=== PATIENT | female | born 1955 | race Caucasian/White ===

== ENCOUNTER 2018-03-06 06:04 | Inpatient (IN) | payer MEDICAID, OTHER ==
[~2018-03-06] VITALS: Ht 162.6 cm; Wt 67.1 kg
[2018-03-06 07:04] LABS: CLARITY URINE CLEAR (CLEAR); COLOR URINE YELLOW (YELLOW); KETONES URINE TRACE (NEGATIVE); LEUKOCYTE ESTERASE URINE TRACE (NEGATIVE); NITRITE URINE NEGATIVE (NEGATIVE); OCCULT BLOOD URINE 1+ (NEGATIVE); PH URINE 5.5 (4.5-8.0); PROTEIN URINE 2+ (NEGATIVE); SPECIFIC GRAVITY URINE 1.013 (1.005-1.030); UROBILINOGEN URINE 0.2 E.U./dL (0.2-1.0)
[2018-03-06 07:34] LABS: BASOPHILS % 0.3 % (0.0-2.0); EOSINOPHILS % 0.1 % (0.0-5.0); HEMOGLOBIN. 11.7 g/dL (12.0-16.0); LYMPHOCYTES % 10.6 % (20.0-50.0); MEAN CORPUSCULAR HEMOGLOBIN 28.3 pg (28.0-32.0); MEAN CORPUSCULAR VOLUME 84.5 fL (81.0-99.0); MEAN PLATELET VOLUME 8.9 fl (7.4-10.4); MONOCYTES % 3.3 % (2.0-8.0); NEUTROPHILS % 85.7 % (40.0-76.0); PLATELET 308 x1000/uL (130-400); RED BLOOD CELL COUNT 4.14 mill/uL (4.2-5.4); RED CELL DISTRIBUTION WIDTH 13.3 % (11.6-14.6)
[2018-03-06 07:41] LABS: INR 1.2; PROTHROMBIN TIME 11.9 sec (9.1-11.1)
[2018-03-06 07:49] LABS: CHLORIDE 98 mEq/L (98-107); ETHANOL BLOOD < 10 mg/dL
[2018-03-06] MEDS ORDERED: SODIUM CHLORIDE 0.9% 1,000 ML IV ONE (08:30)
[2018-03-06] MEDS ORDERED: LORAZEPAM 2MG/ML CPJ IV ONE (08:30)
[2018-03-06 09:50] LABS: PHENCYCLIDINE URINE SCREEN NEGATIVE (NEGATIVE)
[2018-03-06 09:58] LABS: *AMPHETAMINES SCREEN URINE NEGATIVE (NEGATIVE); *BARBITURATES SCREEN URINE NEGATIVE (NEGATIVE); *BENZODIAZEPINES SCREEN URINE NEGATIVE (NEGATIVE); *COCAINE SCREEN URINE NEGATIVE (NEGATIVE); CANNABINOID URINE SCREEN NEGATIVE (NEGATIVE); METHADONE URINE SCREEN NEGATIVE (NEGATIVE); OPIATES URINE SCREEN NEGATIVE (NEGATIVE)
[2018-03-06] MEDS ORDERED: LORAZEPAM 2MG/ML CPJ IV PRN (15:00)
[2018-03-06] MEDS ORDERED: HYDROCODONE/ACETAMINOPHEN 5/325MG TABLET PO PRN (15:00)
[2018-03-06] MEDS ORDERED: MAGNESIUM/ALUMINUM HYDROXIDE/SIMETHICONE 30ML UDC PO PRN (15:00)
[2018-03-06] MEDS ORDERED: IPRATROPIUM/ALBUTEROL 0.5-3(2.5)MG/3ML NEB INH PRN (15:00)
[2018-03-06] MEDS ORDERED: ONDANSETRON HCL 4MG/2ML INJ IV PRN (15:00)
[2018-03-06] MEDS ORDERED: ACETAMINOPHEN 325MG TABLET PO PRN (15:00)
[2018-03-06] MEDS ORDERED: CLONIDINE 0.1MG TABLET PO PRN (15:00)
[2018-03-06] MEDS ORDERED: ENOXAPARIN 40MG/0.4ML SYR SUBCUT SCH (15:00)
[2018-03-06] MEDS ORDERED: DOCUSATE SODIUM 100MG CAPSULE PO PRN (15:00)
[2018-03-06 15:42] LABS: CHLORIDE 106 mEq/L (98-107)
[2018-03-06] MEDS: LEVETIRACETAM 500MG TABLET PO SCH (21:22)
[2018-03-06 23:51] LABS: CREATINE KINASE MB FRACTION 9.8 ng/mL (0.5-3.6)
[2018-03-07 06:54] LABS: BASOPHILS % 0.7 % (0.0-2.0); EOSINOPHILS % 1.3 % (0.0-5.0); HEMATOCRIT. 33.3 % (36.0-48.0); HEMOGLOBIN. 11.3 g/dL (12.0-16.0); LYMPHOCYTES % 35.8 % (20.0-50.0); MEAN CORPUSCULAR HEMOGLOBIN 28.7 pg (28.0-32.0); MEAN CORPUSCULAR VOLUME 84.5 fL (81.0-99.0); MEAN PLATELET VOLUME 8.8 fl (7.4-10.4); MONOCYTES % 7.3 % (2.0-8.0); NEUTROPHILS % 54.9 % (40.0-76.0); PLATELET 274 x1000/uL (130-400); RED BLOOD CELL COUNT 3.94 mill/uL (4.2-5.4); RED CELL DISTRIBUTION WIDTH 13.2 % (11.6-14.6)
[2018-03-07 07:20] LABS: CREATINE KINASE MB FRACTION 7.3 ng/mL (0.5-3.6)
[2018-03-07 08:00] VITALS: BP 137/87
[2018-03-07] MEDS: ASPIRIN 81MG EC TABLET PO SCH ×2 (08:44→09:00)
[2018-03-07] MEDS: LEVETIRACETAM 500MG TABLET PO SCH ×3 (08:44→21:37)
[2018-03-07] MEDS: ENOXAPARIN 40MG/0.4ML SYR SUBCUT SCH (08:45)
[2018-03-07] MEDS ORDERED: LORAZEPAM 2MG/ML CPJ IV PRN (09:10)
[2018-03-07 09:20] VITALS: BP 137/87
[2018-03-07] MEDS ORDERED: METF-816 PO (09:29)
[2018-03-07] MEDS ORDERED: INFLUENZA VIRUS VACCINE(AFLURIA) 0.5ML SYR IM ONE (10:00)
[2018-03-07] MEDS ORDERED: DEXTROSE 50% WATER 50ML SYRINGE IV PRN (10:00)
[2018-03-07] MEDS: BLOOD SUGAR DIAGNOSTIC STRIP TEST SCH ×3 (11:56→21:00)
[2018-03-07] MEDS: INSULIN LISPRO 100 UNITS/ML SUBCUT SCH ×3 (11:56→21:00)
[2018-03-07 12:00] VITALS: BP 133/66
[2018-03-07 16:00] VITALS: BP 125/70
[2018-03-07 19:45] LABS: T4 FREE 1.12 ng/dL (0.76-1.46)
[2018-03-07 20:00] VITALS: BP 133/68
[2018-03-08] VITALS: BP 118/66
[2018-03-08 04:00] VITALS: BP 119/62
[2018-03-08] MEDS: BLOOD SUGAR DIAGNOSTIC STRIP TEST SCH ×3 (06:17→16:45)
[2018-03-08] MEDS: INSULIN LISPRO 100 UNITS/ML SUBCUT SCH ×2 (06:27→13:08)
[2018-03-08 07:03] LABS: BASOPHILS % 0.8 % (0.0-2.0); EOSINOPHILS % 2.4 % (0.0-5.0); HEMATOCRIT. 33.4 % (36.0-48.0); HEMOGLOBIN. 11.3 g/dL (12.0-16.0); LYMPHOCYTES % 33.1 % (20.0-50.0); MEAN CORPUSCULAR HEMOGLOBIN 28.5 pg (28.0-32.0); MEAN CORPUSCULAR VOLUME 84.5 fL (81.0-99.0); MEAN PLATELET VOLUME 8.9 fl (7.4-10.4); MONOCYTES % 6.6 % (2.0-8.0); NEUTROPHILS % 57.1 % (40.0-76.0); PLATELET 272 x1000/uL (130-400); RED BLOOD CELL COUNT 3.95 mill/uL (4.2-5.4); RED CELL DISTRIBUTION WIDTH 13.2 % (11.6-14.6)
[2018-03-08 07:52] LABS: CHLORIDE 104 mEq/L (98-107)
[2018-03-08 08:00] VITALS: BP 128/70
[2018-03-08] MEDS: ENOXAPARIN 40MG/0.4ML SYR SUBCUT SCH (09:38)
[2018-03-08] MEDS: ASPIRIN 81MG EC TABLET PO SCH (09:38)
[2018-03-08] MEDS: LEVETIRACETAM 500MG TABLET PO SCH (09:38)
[2018-03-08 12:00] VITALS: BP 140/69
[2018-03-08] MEDS ORDERED: KEPP500 PO (16:55)
[2018-03-08 17:00] VITALS: BP 127/79
== END 2018-03-08 17:45 | disposition home or self-care (01) | DRG 53 ==
LOC: ER 06:40 → 5WST 11:15 → ENRESERV 03-07 07:19
PROVIDERS: ADMIT Internal Medicine; ATTEND Internal Medicine
DX: G40.909 Epilepsy, unspecified, not intractable, without status epilepticus (principal); E87.2 Acidosis; M62.82 Rhabdomyolysis; E87.1 Hypo-osmolality and hyponatremia; R65.10 Systemic inflammatory response syndrome (SIRS) of non-infectious origin without acute organ dysfunction; E11.9 Type 2 diabetes mellitus without complications; D64.9 Anemia, unspecified; F41.9 Anxiety disorder, unspecified; I10 Essential (primary) hypertension; Z86.73 Personal history of transient ischemic attack (TIA), and cerebral infarction without residual deficits; Z79.4 Long term (current) use of insulin; Z79.899 Other long term (current) drug therapy
CPT/HCPCS: 36415; 70551; 71045; 80048; 80061; 80305; 82550; 82553; 82962; 83036; 83605; 83735; 84439; 84443; 84481; 84484; 90686; 93005; 93970; 96360; 96361; 99285; G0482; J1650; J1815; J7030

== ENCOUNTER 2019-12-12 02:50 | Inpatient (IN) | payer OTHER ==
[~2019-12-12] VITALS: Ht 165.1 cm; Wt 56.7 kg
[~2019-12-12 02:50] MED LIST: KEPP500 PO; METF-816 PO
[2019-12-12 03:55] LABS: BASOPHILS % 0.5 % (0.0-2.0); EOSINOPHILS % 0.8 % (0.0-5.0); HEMATOCRIT. 31.4 % (36.0-48.0); HEMOGLOBIN. 10.6 g/dL (12.0-16.0); LYMPHOCYTES % 16.7 % (20.0-50.0); MEAN CORPUSCULAR HEMOGLOBIN 27.8 pg (28.0-32.0); MEAN CORPUSCULAR VOLUME 82.2 fL (81.0-99.0); MEAN PLATELET VOLUME 8.4 fl (7.4-10.4); MONOCYTES % 9.7 % (2.0-8.0); NEUTROPHILS % 72.3 % (40.0-76.0); PLATELET 201 x1000/uL (130-400); RED BLOOD CELL COUNT 3.83 mill/uL (4.2-5.4); RED CELL DISTRIBUTION WIDTH 13.9 % (11.6-14.6)
[2019-12-12 03:56] LABS: BG CARBOXYHEMOGLOBIN 0.6 % (0.5-1.5); BG DEOXYHEMOGLOBIN 4.6 % (0.0-5.0); BG FRACTION INSPIRED OXYGEN 21; BG HCO3 ACT 22.8 mmol/L (22.0-26.0); BG OXYGEN SATURATION 95.4 % (92.0-98.5); BG OXYHEMOGLOBIN 94.8 % (94.0-97.0); BG PCO2 34.7 mmHg (35.0-45.0); BG PH 7.436 (7.350-7.450); BG PO2 77.8 mmHg (75.0-100.0); BG SAMPLE SITE RIGHT RADIAL; BG VENT MODE ROOM AIR
[2019-12-12 04:06] LABS: CHLORIDE 95 mEq/L (98-107)
[2019-12-12] MEDS ORDERED: DEXAMETHASONE 4MG TABLET PO ONE (05:00)
[2019-12-12] MEDS ORDERED: ACETAMINOPHEN 325MG TABLET ONE (05:23)
[2019-12-12] MEDS: BLOOD SUGAR DIAGNOSTIC STRIP TEST SCH ×4 (08:41→21:00)
[2019-12-12] MEDS ORDERED: CEFTRIAXONE 1 G PREMIX 50 ML IV SCH (08:45)
[2019-12-12] MEDS ORDERED: ONDANSETRON HCL 4MG/2ML INJ IV PRN (08:45)
[2019-12-12] MEDS ORDERED: DEXTROSE 50% WATER 50ML SYRINGE IV PRN (08:45)
[2019-12-12] MEDS ORDERED: BENZONATATE 100MG CAPSULE PO PRN (09:00)
[2019-12-12] MEDS: AZITHROMYCIN 500 MG TABLET PO SCH (09:20)
[2019-12-12] MEDS: ENOXAPARIN 60MG/0.6ML SYR SUBCUT SCH ×3 (09:44→23:50)
[2019-12-12] MEDS: ACETAMINOPHEN 325MG TABLET PO PRN (11:16)
[2019-12-12] MEDS: INSULIN LISPRO 100 UNITS/ML SUBCUT SCH ×2 (13:15→21:00)
[2019-12-12] MEDS ORDERED: INSULIN GLARGINE UD 100 UNITS/ML SYR SUBCUT NR (15:45)
[2019-12-12] MEDS: LEVETIRACETAM 500MG TABLET PO SCH ×2 (21:00→23:49)
[2019-12-12] MEDS ORDERED: INSULIN GLARGINE UD 100 UNITS/ML SYR SUBCUT SCH (22:00)
[2019-12-12] MEDS: INSULIN GLARGINE UD 100 UNITS/ML SYR SUBCUT SCH (22:00)
[2019-12-12 23:02] VITALS: BP 118/79
[2019-12-12 23:17] VITALS: BP 118/79
[2019-12-13] VITALS: BP 118/79
[2019-12-13] MEDS: ACETAMINOPHEN 325MG TABLET PO PRN ×2 (03:04→16:22)
[2019-12-13 04:00] VITALS: BP 138/57
[2019-12-13] MEDS ORDERED: GLIP10TA10 PO (07:15)
[2019-12-13] MEDS ORDERED: ATOR10TA69 PO (07:16)
[2019-12-13] MEDS: BLOOD SUGAR DIAGNOSTIC STRIP TEST SCH ×4 (07:16→20:18)
[2019-12-13] MEDS ORDERED: ASPI-1160 PO (07:16)
[2019-12-13] MEDS ORDERED: LISI-186 PO (07:16)
[2019-12-13] MEDS ORDERED: CHLO25TA2 PO (07:16)
[2019-12-13] MEDS: INSULIN LISPRO 100 UNITS/ML SUBCUT SCH ×4 (07:27→20:18)
[2019-12-13 07:33] LABS: INR 1.1; PROTHROMBIN TIME 11.5 sec (9.6-11.0)
[2019-12-13 08:00] VITALS: BP 119/70
[2019-12-13] MEDS: ENOXAPARIN 60MG/0.6ML SYR SUBCUT SCH ×2 (08:26→20:17)
[2019-12-13] MEDS: AZITHROMYCIN 500 MG TABLET PO SCH (08:27)
[2019-12-13] MEDS: LEVETIRACETAM 500MG TABLET PO SCH ×2 (08:27→20:17)
[2019-12-13] MEDS: CEFTRIAXONE 1,000 MG in DEXTROSE 5% WATER 50 ML IV SCH (08:33)
[2019-12-13] MEDS: INSULIN GLARGINE UD 100 UNITS/ML SYR SUBCUT SCH ×2 (09:37→21:45)
[2019-12-13 12:00] VITALS: BP 124/64
[2019-12-13] MEDS: ALBUTEROL 6.7GM HFA INHALER ORI SCH ×2 (15:00→20:17)
[2019-12-13] MEDS: PREDNISONE 20MG TABLET PO SCH ×2 (15:02→16:17)
[2019-12-13 16:17] VITALS: BP 124/84
[2019-12-13] MEDS: LORAZEPAM 2MG/ML CPJ IV PRN (17:50)
[2019-12-13 20:00] VITALS: BP 102/57
[2019-12-14] VITALS (8 sets, daily range): BP systolic 109–132; BP diastolic 60–98
[2019-12-14] MEDS: ALBUTEROL 6.7GM HFA INHALER ORI SCH ×4 (03:00→20:03)
[2019-12-14] MEDS: BLOOD SUGAR DIAGNOSTIC STRIP TEST SCH ×4 (07:40→20:03)
[2019-12-14] MEDS: CEFTRIAXONE 1,000 MG in DEXTROSE 5% WATER 50 ML IV SCH (09:03)
[2019-12-14] MEDS: LEVETIRACETAM 500MG TABLET PO SCH ×2 (09:04→20:02)
[2019-12-14] MEDS: INSULIN LISPRO 100 UNITS/ML SUBCUT SCH ×4 (09:04→20:18)
[2019-12-14] MEDS: ENOXAPARIN 60MG/0.6ML SYR SUBCUT SCH ×2 (09:05→20:03)
[2019-12-14] MEDS: PREDNISONE 20MG TABLET PO SCH ×3 (09:05→17:29)
[2019-12-14] MEDS: AZITHROMYCIN 500 MG TABLET PO SCH (09:05)
[2019-12-14] MEDS: INSULIN GLARGINE UD 100 UNITS/ML SYR SUBCUT SCH ×3 (09:06→21:15)
[2019-12-14] MEDS: ACETAMINOPHEN 325MG TABLET PO PRN ×2 (17:29→22:54)
[2019-12-15] MEDS: MORPHINE SULFATE 2 MG/ML CPJ (NOT FOR IM USE) IV PRN ×3 (01:20→20:21)
[2019-12-15] MEDS: ALBUTEROL 6.7GM HFA INHALER ORI SCH ×5 (03:00→21:00)
[2019-12-15 04:00] VITALS: BP 144/72
[2019-12-15] MEDS: BLOOD SUGAR DIAGNOSTIC STRIP TEST SCH ×4 (06:40→20:03)
[2019-12-15 08:00] VITALS: BP 112/73
[2019-12-15] MEDS: INSULIN LISPRO 100 UNITS/ML SUBCUT SCH ×4 (08:10→20:09)
[2019-12-15] MEDS: LEVETIRACETAM 500MG TABLET PO SCH ×2 (08:32→20:08)
[2019-12-15] MEDS: PREDNISONE 20MG TABLET PO SCH ×3 (08:32→17:33)
[2019-12-15] MEDS: AZITHROMYCIN 500 MG TABLET PO SCH (08:32)
[2019-12-15] MEDS: ENOXAPARIN 60MG/0.6ML SYR SUBCUT SCH ×2 (08:32→20:08)
[2019-12-15] MEDS: CEFTRIAXONE 1,000 MG in DEXTROSE 5% WATER 50 ML IV SCH (08:32)
[2019-12-15] MEDS: INSULIN GLARGINE UD 100 UNITS/ML SYR SUBCUT SCH ×2 (10:17→22:13)
[2019-12-15 12:00] VITALS: BP 104/74
[2019-12-15] MEDS: LORAZEPAM 2MG/ML CPJ IV PRN (15:47)
[2019-12-15 16:02] VITALS: BP 142/76
[2019-12-15 20:27] VITALS: BP 151/88
[2019-12-16] VITALS: BP 143/81
[2019-12-16] MEDS: LORAZEPAM 2MG/ML CPJ IV PRN (00:02)
[2019-12-16] MEDS: ALBUTEROL 6.7GM HFA INHALER ORI SCH ×2 (02:38→08:08)
[2019-12-16 04:00] VITALS: BP 120/65
[2019-12-16] MEDS: BLOOD SUGAR DIAGNOSTIC STRIP TEST SCH ×2 (06:42→12:38)
[2019-12-16 08:00] VITALS: BP 131/67
[2019-12-16] MEDS: CEFTRIAXONE 1,000 MG in DEXTROSE 5% WATER 50 ML IV SCH (08:06)
[2019-12-16] MEDS: AZITHROMYCIN 500 MG TABLET PO SCH (08:06)
[2019-12-16] MEDS: LEVETIRACETAM 500MG TABLET PO SCH (08:06)
[2019-12-16] MEDS: INSULIN LISPRO 100 UNITS/ML SUBCUT SCH ×2 (08:06→12:37)
[2019-12-16] MEDS: PREDNISONE 20MG TABLET PO SCH ×2 (08:07→12:38)
[2019-12-16] MEDS: ENOXAPARIN 60MG/0.6ML SYR SUBCUT SCH (08:07)
[2019-12-16] MEDS: INSULIN GLARGINE UD 100 UNITS/ML SYR SUBCUT SCH (09:53)
[2019-12-16 12:00] VITALS: BP 127/68
[2019-12-16] MEDS: ACETAMINOPHEN 325MG TABLET PO PRN (12:37)
== END 2019-12-16 14:00 | disposition home or self-care (01) | DRG 720 ==
LOC: ER 02:50 → EDBEDREQ 05:09 → 7WST 06:31 → EDBEDREQSVC 06:33 → ENRESERV 20:21
PROVIDERS: ADMIT Internal Medicine; ATTEND Internal Medicine
DX: A41.89 Other specified sepsis (principal); U07.1 COVID-19; J96.01 Acute respiratory failure with hypoxia; D64.9 Anemia, unspecified; E11.9 Type 2 diabetes mellitus without complications; E44.1 Mild protein-calorie malnutrition; E87.1 Hypo-osmolality and hyponatremia; E87.8 Other disorders of electrolyte and fluid balance, not elsewhere classified; G40.909 Epilepsy, unspecified, not intractable, without status epilepticus; J12.89 Other viral pneumonia; J40 Bronchitis, not specified as acute or chronic; I11.0 Hypertensive heart disease with heart failure; I50.32 Chronic diastolic (congestive) heart failure; B97.89 Other viral agents as the cause of diseases classified elsewhere; Z79.84 Long term (current) use of oral hypoglycemic drugs; Z79.899 Other long term (current) drug therapy; Z86.73 Personal history of transient ischemic attack (TIA), and cerebral infarction without residual deficits; Z79.82 Long term (current) use of aspirin; Z68.20 Body mass index [BMI] 20.0-20.9, adult
CPT/HCPCS: 36415; 36600; 71045; 80053; 82375; 82805; 82962; 84484; 85025; 85379; 93005; 96365; 99285; J0696; J1650; J1815; J2060; J2270; J7060; J7512; J8540; C9803-CS; U0003-CS

== ENCOUNTER 2023-08-12 00:11 | Emergency (ER) | payer MEDICARE, MEDICAID ==
[~2023-08-12] VITALS: Ht 154.9 cm; Wt 56.0 kg
[~2023-08-12 00:11] MED LIST changes: +ASPI-1160 PO; +ATOR10TA69 PO; +CHLO25TA2 PO; +GLIP10TA10 PO; +LISI-186 PO; -METF-816 PO; +METF-874 PO
[2023-08-12 00:49] VITALS: TEMP 98.5; O2SAT 99
[2023-08-12 01:17] LABS: BASOPHILS % 0.9 % (0.0-2.0); DIFFERENTIAL COMMENT 0; EOSINOPHILS % 1.9 % (0.0-5.0); HEMATOCRIT. 31.1 % (36.0-48.0); HEMOGLOBIN. 10.3 g/dL (12.0-16.0); MEAN CORPUSCULAR VOLUME 78.7 fL (81.0-99.0); MEAN PLATELET VOLUME 8.6 fl (7.4-10.4); MONOCYTES % 9.6 % (2.0-8.0); NEUTROPHILS % 66.6 % (40.0-76.0); PLATELET 322 x1000/uL (130-400); RED BLOOD CELL COUNT 3.95 mill/uL (4.2-5.4); RED CELL DISTRIBUTION WIDTH 15.2 % (11.6-14.6); WHITE BLOOD COUNT 9.4 x1000/uL (4.5-11.0)
[2023-08-12 01:31] LABS: ALANINE AMINOTRANSFERASE 22 IU/L (10-49); ALBUMIN 4.9 g/dL (3.2-4.8); ASPARTATE AMINOTRANSFERASE 30 IU/L (<34); BILIRUBIN TOTAL 0.5 mg/dL (0.1-1.0); CALCIUM 9.3 mg/dL (8.7-10.4); CARBON DIOXIDE 23 mEq/L (21-32); CHLORIDE 91 mEq/L (98-107); CREATININE 1.1 mg/dL (0.6-1.0); GLUCOSE 139 mg/dL (70-105); POTASSIUM 3.8 mEq/L (3.5-5.1); PROTEIN TOTAL 7.4 g/dL (6.0-8.3); SODIUM 126 mEq/L (136-145); UREA NITROGEN BLOOD 12 mg/dL (9-23)
[2023-08-12 03:31] LABS: CLARITY URINE CLEAR (CLEAR); COLOR URINE YELLOW (YELLOW); GLUCOSE URINE NEGATIVE (NEGATIVE); KETONES URINE TRACE (NEGATIVE); PH URINE 5.5 (4.5-8.0); PROTEIN URINE 1+ (NEGATIVE); SPECIFIC GRAVITY URINE 1.025 (1.005-1.030)
[2023-08-12 03:32] LABS: LEUKOCYTE ESTERASE URINE TRACE (NEGATIVE); NITRITE URINE NEGATIVE (NEGATIVE); OCCULT BLOOD URINE NEGATIVE (NEGATIVE); UROBILINOGEN URINE 1 E.U./dL (0.2-1.0)
[2023-08-12 03:58] LABS: RBC URINE NONE SEEN /hpf (0-2)
[2023-08-12 03:59] LABS: BACTERIA URINE TRACE; SQUAMOUS EPITHELIAL CELL URINE FEW /lpf (RARE/1+)
[2023-08-12] MEDS: SODIUM CHLORIDE 0.9% 500 ML IV ONE (05:34)
[2023-08-12] MEDS: MAGNESIUM/ALUMINUM HYDROXIDE/SIMETHICONE 30ML UDC PO NR (05:34)
[2023-08-12] MEDS: ONDANSETRON 4MG ODT PO ONE (05:34)
[2023-08-12 07:50] VITALS: BP 160/76; PULSE 82; RESP 18
== END 2023-08-12 09:50 | disposition left against medical advice (07) ==
LOC: ER 00:11 → EDBEDREQ 07:29 → CANBEDREQ 09:11 → ER 09:50
DX: K80.20 Calculus of gallbladder without cholecystitis without obstruction (principal); R11.0 Nausea; E87.1 Hypo-osmolality and hyponatremia; E11.9 Type 2 diabetes mellitus without complications; I10 Essential (primary) hypertension; Z86.73 Personal history of transient ischemic attack (TIA), and cerebral infarction without residual deficits; Z79.899 Other long term (current) drug therapy
CPT/HCPCS: 99284; 74176; 96360; 96361; 80053; 81003; 83690; 85025; 36415; 93005; Q0162

== ENCOUNTER 2024-03-16 06:57 | Emergency (ER) | payer MEDICARE, MEDICAID ==
[~2024-03-16] VITALS: Ht 162.6 cm; Wt 54.0 kg
[2024-03-16 07:12] VITALS: O2SAT 99
[2024-03-16 08:18] LABS: CHLORIDE 104 mEq/L (98-107); POTASSIUM 4.4 mEq/L (3.5-5.1); SODIUM 137 mEq/L (136-145)
[2024-03-16 08:19] LABS: BASOPHILS % 0.5 % (0.0-2.0); CARBON DIOXIDE 26 mEq/L (21-32); EOSINOPHILS % 0.2 % (0.0-5.0); HEMATOCRIT. 31.6 % (36.0-48.0); HEMOGLOBIN. 10.2 g/dL (12.0-16.0); LYMPHOCYTES % 14.6 % (20.0-50.0); MEAN CORPUSCULAR HEMOGLOBIN 26.2 pg (28.0-32.0); MEAN CORPUSCULAR HGB CONC 32.3 g/dL (31.0-37.0); MEAN PLATELET VOLUME 8.7 fl (7.4-10.4); MONOCYTES % 2.8 % (2.0-8.0); NEUTROPHILS % 81.9 % (40.0-76.0); PLATELET 294 x1000/uL (130-400); RED CELL DISTRIBUTION WIDTH 13.8 % (11.6-14.6); WHITE BLOOD COUNT 10.9 x1000/uL (4.5-11.0)
[2024-03-16 08:24] LABS: CREATININE 1.2 mg/dL (0.6-1.0); GLUCOSE 203 mg/dL (70-105); UREA NITROGEN BLOOD 19 mg/dL (9-23)
[2024-03-16 08:26] LABS: ALANINE AMINOTRANSFERASE 14 IU/L (10-49); ALBUMIN 4.6 g/dL (3.2-4.8); ASPARTATE AMINOTRANSFERASE 20 IU/L (<34); BILIRUBIN DIRECT 0.1 mg/dL (<=3.0); BILIRUBIN TOTAL 0.5 mg/dL (0.1-1.0); PROTEIN TOTAL 7.6 g/dL (6.0-8.3)
[2024-03-16 08:27] LABS: INR 1.1; PROTHROMBIN TIME 12.2 sec (9.6-11.0)
[2024-03-16] MEDS: ONDANSETRON HCL 4MG/2ML INJ IV ONE (09:24)
[2024-03-16] MEDS: KETOROLAC 30MG/ML VIAL IV ONE (09:24)
[2024-03-16 11:40] VITALS: BP 132/64; PULSE 78; RESP 16; TEMP 36.78072; O2SAT 99
== END 2024-03-16 11:42 | disposition home or self-care (01) ==
LOC: ER 06:57
DX: R10.9 Unspecified abdominal pain (principal); I10 Essential (primary) hypertension; E11.9 Type 2 diabetes mellitus without complications; Z79.82 Long term (current) use of aspirin; Z86.73 Personal history of transient ischemic attack (TIA), and cerebral infarction without residual deficits; Z79.899 Other long term (current) drug therapy
CPT/HCPCS: 99284; 96374; 96375; 80076; 80048; 83690; 85025; 85610; 36415; 93005; J1885; J2405